=== PATIENT | male | born 1950 | race Caucasian/White ===

== ENCOUNTER 2024-07-10 11:30 | Outpatient (RCR) | payer MEDICARE, OTHER, SELFPAY ==
--- NOTE | 2024-06-28 17:30 | HP.OTEVAL_ITS ---
Patient's Visit Information Visit Information Visit Information: MARIELA BABCOCK is a 74 year old M, referred to Occupational Therapy by Dr. Julien De La Rosa MD, with a diagnosis of left hand Dupuytren's contracture. Date of Evaluation: 06/28/24 Occupational Therapist: Slime Shepard, ZOEY/Quiana, CHT Subjective Subjective: This 74 year old male was seen for OT eval with dx with Dupuytren's contracture left hand. Pt states he had issues with his contracture of both hands for over 10 years- states he recently decided to have sx. for open fasciotomy- pt had sx on 06/26/24. Pt states he is feeling fine- feels tight and throbbing- Order is to initiate left hand motion program wound care/scar mtg/ and night extension splint hand based. Pain left hand: Current Pain Intensity: 3 Pain Intensity Range: 1 and 4 ROM ROM Comments: left RF MP -35 extension PIP -40/30 DIP +15 left LF MP -30 extension PIP -35 pt demo with open wound due to open fasciotomy on 06/26/24. 2cm x 2cm length and with .4cm wide Quick DASH-Disab of Arm,Shoulder& Hand Quick DASH Score: 81.8175 Goals Goal:ROM equal to unaffected hand: Yes Goal:Oyster Grower/Pinch strength at least 75% of unaffected hand: Yes Goal:No pain with affected hand use: Yes Goal:Full use of affected hand in daily activities including work: Yes Other Goal: wound care: pt will demo understanding of wound dressing change by end of 1st session- orthosis use: pt will demo IND doffing/donning of custom paddle hand based orthosis by end of 1st session Rehabilitation General Assessment: Pt arrives 2 days s/p from open left hand fasciotomy- in need of skilled OT services 2-3x week for 6 -8 weeks due to open healing wound- limited ROM and pain from recent sx. Therapist ed. pt on AROM - edema and wound mtg. dressing change - pt demo understanding. Therapist daria. custom orthosis ( paddle splint hand based) therapist was able to get IF and MF in good MCP and PIP ex. RF and LF less - therapist will cont. to make changes to orthosis weekly to increase finger Ex. pt demo understanding and agree to POC. Rehabilitation Potential: Good Anticipated Interventions Anticipated Interventions: Early Active Motion, A/AAROM/PROM, Edema Control, Scar Care, Triggerpoint Release, Desensitization, Wound Care, Modalities, Orthoses, Joint Protection/Energy Conservation, Ergonomic Education, Education re assistive Equipment, Education re Diagnosis and Home Program Visit Plan Frequency: 2-3x /Week Duration: 2 Months General Plan: wound care orthosis use AROM PROM TEXT: Thank you for the opportunity to evaluate your patient. For Medicare and Medicare HMO plans, please review the plan of care and approve it. It will need to be FAXED BACK to us at [phone] for Medicare purposes. Please let me know if there are questions or concerns regarding this plan of care. Physician Signature: Date:
--- NOTE | 2024-07-10 13:38 | HP.OTDCSUM ---
Discharge Summary D/C Summary: It has been my pleasure to treat MARIELA BABCOCK under orders from Dr. Julien De La Rosa MD, for the diagnosis of left hand Dupuytren's contracture for a total of 4 visit(s). Please see the following information for a summary of their discharge status. Overall Improvement % Improvement: 95 Objective Objective/Function: L hand RF -45 Goals Patient Goals: Regain Mobility, Use Hand/Wrist/Arm Normally Again and Be More Independent in ADLS Goal:ROM equal to unaffected hand: Yes Goal Progress: Goal Met Goal:Set Up Mechanic Stamping Machines/Pinch strength at least 75% of unaffected hand: Yes Goal Progress: unable to assess Goal:No pain with affected hand use: Yes Goal Progress: Goal Met Goal:Full use of affected hand in daily activities including work: Yes Goal Progress: Goal Met Other Goal: wound care: pt will demo understanding of wound dressing change by end of 1st session- orthosis use: pt will demo IND doffing/donning of custom paddle hand based orthosis by end of 1st session goal met Plan Plan: splint AROM wound management D/C Information Discharge Comments: this 74 year old male seen for OT s/p sx for release seen for AROM splinting and wound management pt to perform wound management at home and carryover AROM and splint wear discharge at this time per pt request d/c sentence: If there are questions or concerns regarding this patient's occupational therapy, please fell free to call me at [phone]. Thank you for the referral of this patient. Sincerely, Alisa Carbajal
--- NOTE | 2024-07-10 13:38 | HP.OT.NRP ---
Patient Information Patient Information: MARIELA BABCOCK was seen in my office for initial evaluation on 06/28/24. The following Plan of Care was established for this patient: POC Established Initial Frequency: 2-3x /Week Initial Duration: 2 Months Plan: splint AROM wound management Anticipated Interventions Anticipated Interventions: Early Active Motion, A/AAROM/PROM, Edema Control, Scar Care, Triggerpoint Release, Desensitization, Wound Care, Modalities, Orthoses, Joint Protection/Energy Conservation, Ergonomic Education, Education re assistive Equipment, Education re Diagnosis and Home Program Last Seen Last Seen: This patient was last seen in our office 07/10/24. Pertinent comments regarding their Occupational therapy will appear below: this 74 year old male seen for OT s/p sx for release seen for AROM splinting and wound management pt to perform wound management at home and carryover AROM and splint wear discharge at this time per pt request At this point I will be discontinuing this patient from occupational therapy. I would be happy to see this patient again in the future if found appropriate by the physician. Thank you! Alisa Carbajal
== END 2024-07-10 14:26 | disposition home or self-care (01) ==
LOC: OT 11:30
PROVIDERS: PCP Internal Medicine; Referring Provider Orthopaedic Surgery; Visit Provider Orthopaedic Surgery
DX: M72.0 Palmar fascial fibromatosis [Dupuytren] (principal)
CPT/HCPCS: 97165; 97166; 97530; 97760